=== PATIENT | female | born 1980 | race Caucasian/White ===

== ENCOUNTER 2016-12-21 17:24 | Inpatient (IN) | payer SELFPAY ==
[~2016-12-21] VITALS: Ht 165.1 cm; Wt 80.3 kg
--- NOTE | ~2016-12-21 | HP ---
PATIENT'S NAME: YANNICK NOVAK [facility] AGE: 36 Y [address] ROOM: [place] [address] LOCATION: [facility] ADMIT DATE: 12/21/2016 History & Physical DISCHARGE DATE: FAMILY PHYSICIAN: PHYSICIAN, UNKNOWN ATTENDING PHYSICIAN: Neema Danielson DATE OF SERVICE: HISTORY OF PRESENT ILLNESS: This 36-year-old lady was seen by me in the emergency room, she was transferred here from [place]. She apparently was attempting to get on a horse and the horse took off and she ended up presumably hitting the back of her head on the ground. She was not aware of that aspect and she had a period of loss of consciousness, but by the time she got to the local hospital, she was already awake, alert, complaining primarily of headache, some discomfort in the lower back. Investigation was carried out at that time, included a CT scan of the brain. The CT scan of the brain showed intraventricular blood, primarily in the body of the left lateral ventricle. There were no other abnormalities on CT of the brain. CT scan of the cervical spine was normal. CT scan of the lumbar spine showed a sort of jig fracture at the anterior superior portion of L4, which is old. 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 ALLERGIES: SHE IS ALLERGIC TO SULFA MEDICATION. SHE IS ON LITHIUM AND BUSPAR. FAMILY HISTORY: She does not know because she is adopted. SOCIAL HISTORY: She smokes about half to a pack of cigarettes per day. She drinks alcohol occasionally. REVIEW OF SYSTEMS: Apart from the headache and low back discomfort, the rest of the review of systems were essentially negative. PHYSICAL EXAMINATION: GENERAL: In the emergency room, this is a 36-year-old lady, her Israel Coma Score was 15. She was awake, she was alert, obeyed instructions. VITAL SIGNS: Blood pressure was 100/64, the pulse was 73 and was regular, respirations are 20, temperature is 97.6. PATIENT'S NAME: YANNICK NOVAK [facility] AGE: 36 Y [address] ROOM: [place] [address] LOCATION: [facility] ADMIT DATE: 12/21/2016 History & Physical DISCHARGE DATE: FAMILY PHYSICIAN: PHYSICIAN, UNKNOWN ATTENDING PHYSICIAN: Neema Danielson HEENT: She was normocephalic. NECK: There was no tenderness on palpating the cervical spinous processes. No restriction of movement of the cervical spine. CHEST: Clear. The heart rate was regular. ABDOMEN: Soft. NEUROLOGICAL: The cranial nerve examination was normal. The sensory examination, she has paresthesia in the right side including the upper and lower extremities. The reflexes were normal. Toes were downgoing. BACK: There was an abrasion on the left lateral side of the back in the lower thoracic and upper lumbar region, and she has some bruising in both gluteal regions. LABORATORY DATA: CT scan of the cervical spine was normal. IMPRESSION: 1. Cerebral concussion. 2. Traumatic intraventricular hemorrhage involving the body of the left lateral ventricle. PLAN: At this time is to admit her to the hospital and watch her. I did tell her that there is a probability that with intraventricular hemorrhage, she could develop hydrocephalus, which might need further intervention, but at the present time, there is no intervention warranted. MD TSERING POND/partha /[id number]: [id number] T: [id number] HISTORY & PHYSICAL
--- NOTE | ~2016-12-21 | ER ---
PATIENT'S NAME: SCARLET [facility] AGE: 36 Y [address] ROOM: [place] [address] LOCATION: [facility] ADMIT DATE: 12/21/2016 ER/Outpatient Report DISCHARGE DATE: FAMILY PHYSICIAN: PHYSICIAN, UNKNOWN ATTENDING PHYSICIAN: Neema Danielson Time of Arrival: 1724 hours. Time of Evaluation: 1724 hours. ID: A 36-year-old female. CHIEF COMPLAINT: Fall from horse. HISTORY OF PRESENT ILLNESS: The patient is a 36-year-old female, transferred from [facility] in [place]. The patient was riding horses at a horse show; went to get on the horse and before she could get on the horse, she fell off the horse, hit her head and back, lost consciousness. She does not recall the event. She is complaining of a headache, low back pain, and right shoulder pain. The patient is transferred in by fixed wing from [place]. She does complain of some neck pain. PAST MEDICAL HISTORY: ALLERGIES: SULFA. CURRENT MEDICATIONS: 1. [place]. 2. BuSpar. MEDICAL PROBLEMS: Traumatic brain injury and anxiety. SURGERY: She has had a prior tubal ligation. SOCIAL HISTORY: The patient lives in [place]. Tobacco use, 1 pack per day for 13 years. Alcohol use, denies. Drug use, denies. FAMILY HISTORY: No pertinent family history identified. PATIENT'S NAME: SCARLET [facility] AGE: 36 Y [address] ROOM: [place] [address] LOCATION: [facility] ADMIT DATE: 12/21/2016 ER/Outpatient Report DISCHARGE DATE: FAMILY PHYSICIAN: PHYSICIAN, UNKNOWN ATTENDING PHYSICIAN: Neema Danielson REVIEW OF SYSTEMS: All systems reviewed and negative other than what is noted in the HPI. PHYSICAL EXAMINATION: VITAL SIGNS: Please refer to the nursing notes. Vital signs are stable. GENERAL: The patient is awake and alert. HEENT: Head, normocephalic. Ears: TMs translucent, both ears. Eyes: Pupils equal and reactive to light and accommodation. Extraocular movements intact. Nose: Mucosa pink. No lesions or drainage. Mouth: No lesions. Pharynx benign. NECK: Supple. No lymphadenopathy. She is tender to movement of her neck, so she was placed in a C-collar here in the ER, and we did call for [place] J collar. LUNGS: Clear to auscultation. Breath sounds are equal. EXTREMITIES: The patient is tender over the right shoulder. HEART: Regular rate and rhythm. No murmur, rub, or gallop. ABDOMEN: Bowel sounds present. Soft, nondistended, nontender. No tenderness to pelvic rock. SKIN: [place], warm, and dry. No lesions or rashes noted. After she was log rolled, she did have some abrasions on her back. NEURO: The patient is alert and oriented x4. Cranial nerves 2 through 12 grossly intact. Motor strength 5/5 throughout. Sensation is intact to light touch. LABORATORY DATA AND X-RAYS: Lumbar spine CT from [place] shows a nonsignificant L3 upper endplate compression fracture, when I reviewed the films that appears to be L4 and appears to be old. Head CT from [place] revealed a right lateral intraventricular hemorrhage, on review it is the left. C-spine reportedly negative. Labs from [place]: Sodium 142, potassium 2.9, chloride 109, CO2 of 21.8, BUN 12, creatinine 0.67, blood sugar 111. Liver enzymes normal. LDH 248. [place] level pending. Cardiac enzymes pending. Hemoglobin 12.6, hematocrit 37, platelets 134, white count 7.4. Urinalysis pending from [place]. PT/INR, clot to bank, and serum hCG are drawn here and those results are pending. EMERGENCY DEPARTMENT COURSE: [place] J collar was ordered, but then canceled. Dr. Danielson evaluated the patient in the emergency room and at that time she had no pain, so we did cancel the [place] J order. IMPRESSION AND PLAN: 1. Intraventricular hemorrhage. The patient is stable, awake, and alert. Neurologically intact. PATIENT'S NAME: YANNICK NOVAK [facility] AGE: 36 Y [address] ROOM: [id number] [place], [place] [address] LOCATION: [facility] ADMIT DATE: 12/21/2016 ER/Outpatient Report DISCHARGE DATE: FAMILY PHYSICIAN: PHYSICIAN, UNKNOWN ATTENDING PHYSICIAN: Neema Danielson 2. Concussion. 3. L4 endplate fracture, appears to be old. 4. Right shoulder pain. Diagnosed with clavicle fracture on the right, I do not appreciate clavicle fracture on the right shoulder films that were sent. The patient will be admitted by Dr. Danielson to Neurotrauma. He did evaluate the patient in the emergency room. 5. Hypokalemia. The patient had received potassium en route. 6. Mild thrombocytopenia, platelet count 134. HERBER MEDELLIN MD CAR/modl /[id number] d: 12/22/16 0024 t: 12/25/16 1120, OUTPATIENT REPORT
--- NOTE | ~2016-12-21 | DS ---
PATIENT'S NAME: YANNICK NOVAK [facility] AGE: 36 Y [address] ROOM: [address] [address] LOCATION: [facility] ADMIT DATE: 12/21/2016 Discharge Summary DISCHARGE DATE: 12/23/2016 FAMILY PHYSICIAN: Physician, Unknown ATTENDING PHYSICIAN: Neema Danielson [facility] COURSE: This 36-year-old lady, who was involved in a fall from a horse with a history of transient loss of consciousness, was transferred here from [place], admitted through the emergency room. At the time of admission, she was awake and alert. There was no gross focal neurological deficit found at the examination, investigation was carried out included CT scan of the cervical spine, which did not show any fractures. CT scan of the thoracic and lumbar spine did not show any fractures. CT scan of the brain showed intraventricular blood in the body of the left lateral ventricle. She was admitted to the hospital. Her primary complaint was just headaches. These did get better during her hospitalization. At the time of discharge, she does have the odd headaches. She is being discharged home and is to be seen in the clinic 3 weeks from the time of discharge. She was instructed that if headaches to get worse she should call my office immediately, now we will repeat the CT scan of the brain at that time. The problem that she could develop in the future is hydrocephalus, this was explained to her again in the hospital prior to discharge. If she continues to do well I will see her back in the clinic in three weeks with a repeat CT scan of the brain. FINAL DIAGNOSES: 1. Cerebral concussion. 2. Traumatic intraventricular hemorrhage involving the body of the left lateral ventricle. MD TSERING POND/partha /[id number] d: 12/24/16 0307 t: 01/08/17 1456, DISCHARGE SUMMARY
[2016-12-21 18:29] LABS: PROTIME 10.5 SECONDS (9.8-11.4)
[2016-12-21] MEDS ORDERED: LITHIUM CARBON150 MG PO (20:15)
[2016-12-21] MEDS ORDERED: BUSPAR10 MG PO (20:16)
[2016-12-23] MEDS ORDERED: PERCOCET 5-3251 EACH PO (17:53)
== END 2016-12-23 20:40 | disposition disaster alternative care site (69) | DRG 84 ==
LOC: GACC 17:24 → GNTU 18:56
PROVIDERS: Family Medicine; ADMIT Neurological Surgery
DX: S06.309A Unspecified focal traumatic brain injury with loss of consciousness of unspecified duration, initial encounter (principal); D69.6 Thrombocytopenia, unspecified; S42.001A Fracture of unspecified part of right clavicle, initial encounter for closed fracture; S40.211A Abrasion of right shoulder, initial encounter; E87.6 Hypokalemia; R51 Headache; F17.210 Nicotine dependence, cigarettes, uncomplicated; R40.2412 Glasgow coma scale score 13-15, at arrival to emergency department; V80.010A Animal-rider injured by fall from or being thrown from horse in noncollision accident, initial encounter; Y93.52 Activity, horseback riding; Z88.2 Allergy status to sulfonamides
CPT/HCPCS: J2405; J7030